=== PATIENT | female | born 2000 | race Caucasian/White ===

== ENCOUNTER 2021-10-10 15:38 | Emergency (ER) | payer BC ==
[~2021-10-10] VITALS: Ht 172.7 cm; Wt 61.4 kg
[2021-10-10 15:46] VITALS: BP 149/79; TEMP 98.2
[2021-10-10] MEDS ORDERED: EPIPEN 2-PAK1 MG/ML IM (17:16)
[2021-10-10 17:31] VITALS: PULSE 90
== END 2021-10-10 17:31 | disposition home or self-care (01) ==
LOC: COL.ER 15:38
DX: R21 Rash and other nonspecific skin eruption (principal); T39.1X5A Adverse effect of 4-Aminophenol derivatives, initial encounter